=== PATIENT | male | born 1990 | race African-American/Black ===

== ENCOUNTER 2024-02-07 02:23 | Emergency (ER) | payer OTHER ==
[~2024-02-07] VITALS: Ht 175.3 cm; Wt 90.0 kg
[2024-02-07 02:29] VITALS: O2SAT 98
[2024-02-07] MEDS ORDERED: BENZ1LOZ73 MT (04:07)
[2024-02-07] MEDS ORDERED: NAPR-681 MT (04:07)
[2024-02-07] MEDS: ACETAMINOPHEN 325MG TABLET PO ONE (04:42)
[2024-02-07 04:46] VITALS: BP 149/97; PULSE 90; RESP 18; TEMP 37.00296; O2SAT 98
[2024-02-08] MEDS ORDERED: FLUT9.9S BOTHNSTRLS (05:44)
[2024-02-08] MEDS ORDERED: TOPUD PO (05:44)
== END 2024-02-07 09:40 | disposition home or self-care (01) ==
LOC: ER 02:23
DX: J02.9 Acute pharyngitis, unspecified (principal); I10 Essential (primary) hypertension
CPT/HCPCS: 87070; 87430; 99283

== ENCOUNTER 2024-02-08 01:14 | Emergency (ER) | payer OTHER ==
[~2024-02-08] VITALS: Ht 177.8 cm; Wt 100.0 kg
[~2024-02-08 01:14] MED LIST: BENZ1LOZ73 MT; NAPR-681 MT
[2024-02-08 01:17] VITALS: BP 127/79; RESP 16; TEMP 98.6; O2SAT 100
[2024-02-08 04:15] VITALS: PULSE 86; O2SAT 90
[2024-02-08] MEDS ORDERED: FLUT9.9S BOTHNSTRLS (05:44)
[2024-02-08] MEDS ORDERED: TOPUD PO (05:44)
[2024-02-08] MEDS: ACETAMINOPHEN 325MG TABLET PO ONE (06:05)
== END 2024-02-08 06:16 | disposition home or self-care (01) ==
LOC: ER 01:14
DX: B34.9 Viral infection, unspecified (principal); I10 Essential (primary) hypertension; Z79.899 Other long term (current) drug therapy
CPT/HCPCS: 71045; 99283

== ENCOUNTER 2024-07-06 19:38 | Emergency (ER) | payer MEDICAID ==
[~2024-07-06] VITALS: Ht 177.8 cm; Wt 104.0 kg
[~2024-07-06 19:38] MED LIST changes: +FLUT9.9S BOTHNSTRLS; +TOPUD PO
[2024-07-06 19:40] VITALS: O2SAT 100
[2024-07-06 21:32] LABS: HEMOGLOBIN. 14.1 g/dL (14.0-18.0)
[2024-07-06 21:34] LABS: BASOPHILS % 0.5 % (0.0-2.0); EOSINOPHILS % 1.1 % (0.0-5.0); HEMATOCRIT. 43.7 % (42.0-52.0); LYMPHOCYTES % 38.3 % (20.0-50.0); MEAN CORPUSCULAR HEMOGLOBIN 28.9 pg (28.0-32.0); MEAN CORPUSCULAR HGB CONC 32.3 g/dL (31.0-37.0); MEAN CORPUSCULAR VOLUME 89.5 fL (80.0-94.0); MEAN PLATELET VOLUME 9.6 fl (7.4-10.4); NEUTROPHILS % 55.1 % (40.0-76.0); PLATELET 202 x1000/uL (130-400); RED BLOOD CELL COUNT 4.88 mill/uL (4.7-6.1); RED CELL DISTRIBUTION WIDTH 13.8 % (11.6-14.6); WHITE BLOOD COUNT 6.8 x1000/uL (4.5-11.0)
[2024-07-06 21:39] LABS: CHLORIDE 104 mEq/L (98-107); POTASSIUM 3.7 mEq/L (3.5-5.1); SODIUM 142 mEq/L (136-145)
[2024-07-06 21:40] LABS: CALCIUM 9.7 mg/dL (8.7-10.4); CARBON DIOXIDE 29 mEq/L (21-32)
[2024-07-06 21:45] LABS: CREATININE 0.9 mg/dL (0.6-1.3); GLUCOSE 105 mg/dL (70-105); UREA NITROGEN BLOOD 12 mg/dL (9-23)
[2024-07-07 00:33] LABS: CLARITY URINE CLOUDY (CLEAR); COLOR URINE YELLOW (YELLOW); GLUCOSE URINE NEGATIVE (NEGATIVE); KETONES URINE NEGATIVE (NEGATIVE); LEUKOCYTE ESTERASE URINE NEGATIVE (NEGATIVE); NITRITE URINE NEGATIVE (NEGATIVE); OCCULT BLOOD URINE NEGATIVE (NEGATIVE); PH URINE 7.5 (4.5-8.0); PROTEIN URINE NEGATIVE (NEGATIVE); SPECIFIC GRAVITY URINE 1.024 (1.005-1.030); UROBILINOGEN URINE 0.2 E.U./dL (0.2-1.0)
[2024-07-07 01:11] LABS: BACTERIA URINE NONE SEEN; RBC URINE NONE SEEN /hpf (0-2); SQUAMOUS EPITHELIAL CELL URINE NONE SEEN /lpf (RARE/1+); WBC URINE 0-2 /hpf (0-2)
[2024-07-07 02:33] LABS: ALANINE AMINOTRANSFERASE 37 IU/L (10-49); ALBUMIN 4.5 g/dL (3.2-4.8); ASPARTATE AMINOTRANSFERASE 21 IU/L (<34); BILIRUBIN DIRECT 0.2 mg/dL (<=3.0); BILIRUBIN TOTAL 0.6 mg/dL (0.1-1.0); PROTEIN TOTAL 7.4 g/dL (6.0-8.3)
[2024-07-07 02:54] LABS: TROPONIN I HIGH SENSITIVITY < 4 ng/L (3.0-53)
[2024-07-07] MEDS: METOCLOPRAMIDE HCL 5MG TABLET PO ONE (03:45)
[2024-07-07] MEDS: KETOROLAC 15MG/ML VIAL IM ONE (03:45)
[2024-07-07] MEDS ORDERED: NAPR-1176 MT (03:53)
[2024-07-07] MEDS: ACETAMINOPHEN 325MG TABLET PO NR (09:55)
[2024-07-07 10:50] VITALS: BP 126/71; PULSE 67; RESP 16; TEMP 37.6; O2SAT 99
== END 2024-07-07 10:58 | disposition home or self-care (01) ==
LOC: ER 19:38
DX: R51.9 Headache, unspecified (principal); I10 Essential (primary) hypertension; F84.0 Autistic disorder; Z79.1 Long term (current) use of non-steroidal anti-inflammatories (NSAID); Z79.899 Other long term (current) drug therapy
CPT/HCPCS: 80048; 81003; 85025; 36415 ×2; 99283; 80076; 84484; 96372; J8597; J1885; Z7610 ×2; A4606

== ENCOUNTER 2024-07-15 17:29 | Emergency (ER) | payer OTHER ==
[~2024-07-15] VITALS: Ht 177.8 cm; Wt 95.0 kg
[~2024-07-15 17:29] MED LIST changes: +NAPR-1176 MT
[2024-07-15 17:42] VITALS: BP 140/93; PULSE 95; RESP 16; TEMP 36.7; O2SAT 97
[2024-07-15 18:53] LABS: BASOPHILS % 0.5 % (0.0-2.0); HEMOGLOBIN. 13.4 g/dL (14.0-18.0); LYMPHOCYTES % 31.1 % (20.0-50.0); MEAN CORPUSCULAR HEMOGLOBIN 27.9 pg (28.0-32.0); MEAN CORPUSCULAR VOLUME 87.3 fL (80.0-94.0); MEAN PLATELET VOLUME 9.6 fl (7.4-10.4); MONOCYTES % 5.5 % (2.0-8.0); NEUTROPHILS % 61.9 % (40.0-76.0); PLATELET 221 x1000/uL (130-400); RED BLOOD CELL COUNT 4.82 mill/uL (4.7-6.1); RED CELL DISTRIBUTION WIDTH 13.8 % (11.6-14.6); WHITE BLOOD COUNT 7.9 x1000/uL (4.5-11.0)
[2024-07-15 18:58] LABS: CHLORIDE 107 mEq/L (98-107); POTASSIUM 3.9 mEq/L (3.5-5.1); SODIUM 145 mEq/L (136-145)
[2024-07-15 18:59] LABS: CARBON DIOXIDE 30 mEq/L (21-32)
[2024-07-15 19:04] LABS: CREATININE 0.7 mg/dL (0.6-1.3); GLUCOSE 98 mg/dL (70-105)
[2024-07-15 19:05] LABS: UREA NITROGEN BLOOD 12 mg/dL (9-23)
[2024-07-15 19:44] VITALS: TEMP 98
[2024-07-15] MEDS: ACETAMINOPHEN 325MG TABLET PO ONE (19:44)
[2024-07-15] MEDS: ACETAMINOPHEN 325MG TABLET PO NR (21:45)
[2024-07-15] MEDS ORDERED: ACETAMINOPHEN 325MG TABLET PO ONE (21:45)
== END 2024-07-16 00:11 | disposition home or self-care (01) ==
LOC: ER 17:29
DX: R51.9 Headache, unspecified (principal); I10 Essential (primary) hypertension; F84.0 Autistic disorder; Z79.1 Long term (current) use of non-steroidal anti-inflammatories (NSAID); Z79.899 Other long term (current) drug therapy
CPT/HCPCS: 36415; 80048; 85025; 99283

== ENCOUNTER 2024-07-25 05:35 | Emergency (ER) | payer MEDICAID, OTHER ==
[~2024-07-25] VITALS: Ht 177.8 cm; Wt 105.0 kg
[2024-07-25 05:42] VITALS: TEMP 36.8; O2SAT 99
[2024-07-25] MEDS ORDERED: FLUTICASONE PROPIONATE 50MCG/SPRAY BOTTLE BOTHNSTRLS STA (06:05)
[2024-07-25] MEDS ORDERED: CLAR10 PO (06:48)
[2024-07-25 07:00] VITALS: BP 133/89; PULSE 102; RESP 18; O2SAT 96
== END 2024-07-25 07:34 | disposition home or self-care (01) ==
LOC: ER 05:35
DX: R09.81 Nasal congestion (principal); B34.9 Viral infection, unspecified; I10 Essential (primary) hypertension; Z79.1 Long term (current) use of non-steroidal anti-inflammatories (NSAID)
CPT/HCPCS: 71045; 99283

== ENCOUNTER 2024-07-27 09:12 | Emergency (ER) | payer MEDICAID ==
[~2024-07-27] VITALS: Ht 177.8 cm; Wt 91.0 kg
[~2024-07-27 09:12] MED LIST changes: +CLAR10 PO
[2024-07-27 09:16] VITALS: BP 136/93; PULSE 102; RESP 16; TEMP 36.5; O2SAT 98
== END 2024-07-27 10:56 | disposition home or self-care (01) ==
LOC: ER 09:12
DX: R45.851 Suicidal ideations (principal); I10 Essential (primary) hypertension; Z79.1 Long term (current) use of non-steroidal anti-inflammatories (NSAID); Z79.899 Other long term (current) drug therapy
CPT/HCPCS: 99283

== ENCOUNTER 2024-08-21 15:07 | Emergency (ER) | payer MEDICAID ==
[~2024-08-21] VITALS: Ht 175.3 cm; Wt 91.0 kg
[2024-08-21 15:13] VITALS: O2SAT 97
[2024-08-21] MEDS ORDERED: METOCLOPRAMIDE HCL 10MG/2ML VIAL IV ONE (18:30)
[2024-08-21] MEDS: MECLIZINE 25MG TABLET PO ONE (18:39)
[2024-08-21] MEDS: SODIUM CHLORIDE 0.9% 1,000 ML IV ONE (18:40)
[2024-08-21] MEDS: DIPHENHYDRAMINE 50MG/ML VIAL IV ONE (18:40)
[2024-08-21] MEDS: ACETAMINOPHEN 325MG TABLET PO ONE (18:40)
[2024-08-21 19:05] LABS: BASOPHILS % 0.4 % (0.0-2.0); EOSINOPHILS % 0.3 % (0.0-5.0); HEMATOCRIT. 40.5 % (42.0-52.0); HEMOGLOBIN. 13.4 g/dL (14.0-18.0); LYMPHOCYTES % 23.9 % (20.0-50.0); MEAN CORPUSCULAR HEMOGLOBIN 28.9 pg (28.0-32.0); MEAN CORPUSCULAR HGB CONC 33.1 g/dL (31.0-37.0); MEAN CORPUSCULAR VOLUME 87.3 fL (80.0-94.0); MEAN PLATELET VOLUME 9.9 fl (7.4-10.4); MONOCYTES % 5.2 % (2.0-8.0); NEUTROPHILS % 70.2 % (40.0-76.0); PLATELET 207 x1000/uL (130-400); RED BLOOD CELL COUNT 4.64 mill/uL (4.7-6.1); RED CELL DISTRIBUTION WIDTH 14.2 % (11.6-14.6); WHITE BLOOD COUNT 8.9 x1000/uL (4.5-11.0)
[2024-08-21 19:17] LABS: CHLORIDE 105 mEq/L (98-107); POTASSIUM 4.1 mEq/L (3.5-5.1); SODIUM 144 mEq/L (136-145)
[2024-08-21 19:18] LABS: CALCIUM 9.3 mg/dL (8.7-10.4); CARBON DIOXIDE 29 mEq/L (21-32)
[2024-08-21 19:23] LABS: CREATININE 0.8 mg/dL (0.6-1.3); ETHANOL BLOOD < 10 mg/dL (<10); GLUCOSE 109 mg/dL (70-105); UREA NITROGEN BLOOD 16 mg/dL (9-23)
[2024-08-21 19:24] LABS: PROTHROMBIN TIME 10.3 sec (9.6-11.0)
[2024-08-21 19:29] LABS: CLARITY URINE CLEAR (CLEAR); COLOR URINE YELLOW (YELLOW); GLUCOSE URINE NEGATIVE (NEGATIVE); KETONES URINE NEGATIVE (NEGATIVE); LEUKOCYTE ESTERASE URINE NEGATIVE (NEGATIVE); NITRITE URINE NEGATIVE (NEGATIVE); OCCULT BLOOD URINE NEGATIVE (NEGATIVE); PH URINE 7.5 (4.5-8.0); PROTEIN URINE NEGATIVE (NEGATIVE); SPECIFIC GRAVITY URINE 1.022 (1.005-1.030); UROBILINOGEN URINE 0.2 E.U./dL (0.2-1.0)
[2024-08-21 19:51] LABS: *AMPHETAMINES SCREEN URINE NEGATIVE (NEGATIVE)
[2024-08-21 19:52] LABS: *BARBITURATES SCREEN URINE NEGATIVE (NEGATIVE); *BENZODIAZEPINES SCREEN URINE NEGATIVE (NEGATIVE); *COCAINE SCREEN URINE NEGATIVE (NEGATIVE); CANNABINOID URINE SCREEN NEGATIVE (NEGATIVE); ECSTASY MDMA SCREEN URINE NEGATIVE (NEGATIVE); METHADONE URINE SCREEN NEGATIVE (NEGATIVE); OPIATES URINE SCREEN NEGATIVE (NEGATIVE); PHENCYCLIDINE URINE SCREEN NEGATIVE (NEGATIVE)
[2024-08-21] MEDS ORDERED: MECL-299 MT (21:22)
[2024-08-22 01:15] VITALS: BP 132/86; PULSE 66; RESP 16; TEMP 36.7; O2SAT 99
== END 2024-08-22 01:17 | disposition home or self-care (01) ==
LOC: ER 15:07
DX: R42 Dizziness and giddiness (principal); I10 Essential (primary) hypertension; F84.0 Autistic disorder; Z98.890 Other specified postprocedural states; Z79.899 Other long term (current) drug therapy
CPT/HCPCS: 80305; 80048; 81003; 80320; 85025; 85610; 36415; 70450; 93005; 96361; 96374; 99285; J8597; J1200; J7030; Z7610 ×2; G0480

== ENCOUNTER 2024-11-26 06:46 | Inpatient (IN) | payer MEDICAID ==
[~2024-11-26] VITALS: Ht 165.1 cm; Wt 113.1 kg
[~2024-11-26 06:46] MED LIST changes: +MECL-299 MT
[2024-11-26 06:50] VITALS: O2SAT 100
[2024-11-26] MEDS: ACETAMINOPHEN 1000MG/100ML 100 ML IV ONE (07:50)
[2024-11-26] MEDS: SODIUM CHLORIDE 0.9% 1,000 ML IV ONE (07:50)
[2024-11-26] MEDS: METOCLOPRAMIDE HCL 10MG/2ML VIAL IV ONE (07:50)
[2024-11-26 07:59] LABS: BASOPHILS % 0.6 % (0.0-2.0); EOSINOPHILS % 0.9 % (0.0-5.0); HEMATOCRIT. 38.1 % (42.0-52.0); HEMOGLOBIN. 12.6 g/dL (14.0-18.0); LYMPHOCYTES % 49.9 % (20.0-50.0); MEAN PLATELET VOLUME 8.7 fl (7.4-10.4); MONOCYTES % 9.6 % (2.0-8.0); NEUTROPHILS % 39.0 % (40.0-76.0); PLATELET 192 x1000/uL (130-400); RED BLOOD CELL COUNT 4.40 mill/uL (4.7-6.1); RED CELL DISTRIBUTION WIDTH 13.5 % (11.6-14.6)
[2024-11-26 08:12] LABS: CREATININE 0.8 mg/dL (0.6-1.3); UREA NITROGEN BLOOD 18 mg/dL (9-23)
[2024-11-26 08:13] LABS: TROPONIN I HIGH SENSITIVITY 6 ng/L (3.0-53)
[2024-11-26] MEDS ORDERED: DOCUSATE SODIUM 100MG CAPSULE PO PRN (09:30)
[2024-11-26] MEDS ORDERED: IPRATROPIUM/ALBUTEROL 0.5-3(2.5)MG/3ML NEB HHN PRN (09:30)
[2024-11-26] MEDS ORDERED: GUAIFENESIN 200MG/10ML SUGAR FREE UDC PO PRN (09:30)
[2024-11-26] MEDS ORDERED: ONDANSETRON HCL 4MG/2ML INJ IV PRN (09:30)
[2024-11-26] MEDS ORDERED: ACETAMINOPHEN 325MG TABLET PO PRN (09:30)
[2024-11-26] MEDS ORDERED: CLONIDINE 0.1MG TABLET PO PRN (09:30)
[2024-11-26] MEDS ORDERED: MAGNESIUM/ALUMINUM HYDROXIDE/SIMETHICONE 30ML UDC PO PRN (09:30)
[2024-11-26] MEDS ORDERED: MECLIZINE 25MG TABLET PO PRN (09:30)
[2024-11-26 09:46] LABS: FOLIC ACID (FOLATE) SERUM > 20.00 ng/mL (>5.38)
[2024-11-26 09:47] LABS: VITAMIN B12 SERUM 567 pg/mL (211-911)
[2024-11-26 10:00] LABS: CLARITY URINE CLEAR (CLEAR); COLOR URINE YELLOW (YELLOW); GLUCOSE URINE NEGATIVE (NEGATIVE); KETONES URINE NEGATIVE (NEGATIVE); LEUKOCYTE ESTERASE URINE NEGATIVE (NEGATIVE); NITRITE URINE NEGATIVE (NEGATIVE); OCCULT BLOOD URINE NEGATIVE (NEGATIVE); PH URINE 7.0 (4.5-8.0); PROTEIN URINE NEGATIVE (NEGATIVE); SPECIFIC GRAVITY URINE 1.021 (1.005-1.030); UROBILINOGEN URINE 0.2 E.U./dL (0.2-1.0)
[2024-11-26] MEDS: ACETAMINOPHEN 325MG TABLET PO PRN (10:36)
[2024-11-26] MEDS: ENOXAPARIN 40MG/0.4ML SYR SUBCUT SCH (10:36)
[2024-11-26 10:37] LABS: *AMPHETAMINES SCREEN URINE NEGATIVE (NEGATIVE); *BARBITURATES SCREEN URINE NEGATIVE (NEGATIVE); *BENZODIAZEPINES SCREEN URINE NEGATIVE (NEGATIVE); *COCAINE SCREEN URINE NEGATIVE (NEGATIVE); CANNABINOID URINE SCREEN NEGATIVE (NEGATIVE); ECSTASY MDMA SCREEN URINE NEGATIVE (NEGATIVE); METHADONE URINE SCREEN NEGATIVE (NEGATIVE); OPIATES URINE SCREEN NEGATIVE (NEGATIVE); PHENCYCLIDINE URINE SCREEN NEGATIVE (NEGATIVE)
[2024-11-26 12:00] VITALS: BP 126/95; PULSE 73; RESP 18; TEMP 36.6; O2SAT 98
[2024-11-26 16:00] VITALS: BP 120/81; PULSE 70; RESP 20; TEMP 36.7; O2SAT 99
[2024-11-26 16:30] VITALS: BP 126/76; PULSE 73; RESP 20; TEMP 36.4736
[2024-11-26 17:20] LABS: TROPONIN I HIGH SENSITIVITY 13 ng/L (3.0-53)
[2024-11-26 20:00] VITALS: BP_SYST 105; BP_SYST 134; BP_SYST 137; BP_SYST 139; BP_DIAS 61; BP_DIAS 88; BP_DIAS 89; BP_DIAS 92; PULSE 72; PULSE 78; RESP 18; RESP 19; TEMP 36.6; TEMP 36.7; O2SAT 96; O2SAT 98
[2024-11-26] MEDS: FAMOTIDINE 20MG TABLET PO SCH (20:35)
[2024-11-27] VITALS: BP 119/64; PULSE 69; RESP 17; TEMP 35.8; O2SAT 96
[2024-11-27 01:45] LABS: TROPONIN I HIGH SENSITIVITY 5 ng/L (3.0-53)
[2024-11-27 04:00] VITALS: BP 125/88; PULSE 70; RESP 18; TEMP 36.3; O2SAT 98
[2024-11-27 06:16] LABS: BASOPHILS % 0.6 % (0.0-2.0); EOSINOPHILS % 2.1 % (0.0-5.0); HEMATOCRIT. 39.9 % (42.0-52.0); HEMOGLOBIN. 12.9 g/dL (14.0-18.0); LYMPHOCYTES % 59.1 % (20.0-50.0); MEAN PLATELET VOLUME 8.6 fl (7.4-10.4); MONOCYTES % 8.7 % (2.0-8.0); NEUTROPHILS % 29.5 % (40.0-76.0); PLATELET 180 x1000/uL (130-400); RED BLOOD CELL COUNT 4.64 mill/uL (4.7-6.1); RED CELL DISTRIBUTION WIDTH 13.9 % (11.6-14.6)
[2024-11-27 06:22] LABS: CREATININE 0.8 mg/dL (0.6-1.3)
[2024-11-27 06:25] LABS: T4 FREE 1.31 ng/dL (0.89-1.76); UREA NITROGEN BLOOD 15 mg/dL (9-23)
[2024-11-27] MEDS: MULTIVITAMINS,THER W-MINERALS TABLET PO SCH (09:45)
[2024-11-27] MEDS: FERROUS SULFATE 325MG TABLET PO SCH (09:46)
[2024-11-27 12:00] VITALS: BP 138/97; PULSE 66; RESP 18; TEMP 36.4; O2SAT 96
[2024-11-27] MEDS ORDERED: MECL-299 MT (12:23)
[2024-11-27 16:00] VITALS: BP 133/77; PULSE 79; RESP 18; TEMP 36.2; O2SAT 97
[2024-11-27 16:36] VITALS: BP 138/97; PULSE 66; RESP 18; TEMP 97.5
== END 2024-11-27 17:10 | disposition home or self-care (01) | DRG 207 ==
LOC: ER 06:46 → 7WST 08:39 → EDBEDREQTM 08:42 → EDBEDREQ 08:42 → ENRESERV 09:01
PROVIDERS: ADMIT Hospitalist; ATTEND Hospitalist
DX: I95.2 Hypotension due to drugs (principal); E87.0 Hyperosmolality and hypernatremia; D64.9 Anemia, unspecified; E66.9 Obesity, unspecified; I10 Essential (primary) hypertension; F84.0 Autistic disorder; T50.995A Adverse effect of other drugs, medicaments and biological substances, initial encounter; Y92.89 Other specified places as the place of occurrence of the external cause; Z68.41 Body mass index [BMI] 40.0-44.9, adult
CPT/HCPCS: 36415; 71045; 80048; 80305; 81003; 82550; 82607; 82728; 82746; 83540; 83550; 84439; 84443; 84484; 85025; 85044; 93005; 99285; J1650; J2765; J7030; J0131

== ENCOUNTER 2024-12-04 12:08 | Emergency (ER) | payer MEDICAID ==
[~2024-12-04] VITALS: Ht 172.7 cm; Wt 82.0 kg
[~2024-12-04 12:08] MED LIST changes: -BENZ1LOZ73 MT; -NAPR-1176 MT; -NAPR-681 MT; -TOPUD PO
[2024-12-04 12:11] VITALS: O2SAT 97
[2024-12-04] MEDS ORDERED: DEXAMETHASONE 1 MG/ML ORAL SYR PO ONE (14:15)
[2024-12-04] MEDS: DEXAMETHASONE 4MG TABLET PO SCH (14:35)
[2024-12-04] MEDS: ACETAMINOPHEN 325MG TABLET PO ONE (14:35)
[2024-12-04] MEDS: VISCOUS LIDOCAINE 2% 15 ML UDC MM ONE (16:38)
[2024-12-04] MEDS ORDERED: IBUP-2028 MT (17:19)
[2024-12-04 20:01] VITALS: BP 125/83; PULSE 80; RESP 15; TEMP 36.7; O2SAT 95
[2024-12-05] MEDS ORDERED: IBUP-2029 MT (05:14)
[2024-12-05] MEDS ORDERED: METH4TAB95 MT (21:53)
== END 2024-12-04 21:01 | disposition home or self-care (01) ==
LOC: ER 12:08
DX: J02.8 Acute pharyngitis due to other specified organisms (principal); B97.89 Other viral agents as the cause of diseases classified elsewhere; F84.0 Autistic disorder; I10 Essential (primary) hypertension; Z79.899 Other long term (current) drug therapy
CPT/HCPCS: 99284; 87430; 87070; 87077; J8540; 99283

== ENCOUNTER 2024-12-05 02:29 | Emergency (ER) | payer MEDICAID ==
[~2024-12-05] VITALS: Ht 175.3 cm; Wt 103.0 kg
[~2024-12-05 02:29] MED LIST changes: +IBUP-2028 MT
[2024-12-05 02:31] VITALS: O2SAT 96
[2024-12-05] MEDS: DEXAMETHASONE 10 MG/ML VIAL IM NR (02:54)
[2024-12-05] MEDS: KETOROLAC 30MG/ML VIAL IM NR (02:54)
[2024-12-05] MEDS ORDERED: IBUP-2029 MT (05:14)
[2024-12-05 05:55] VITALS: BP 134/83; PULSE 83; RESP 18; TEMP 36.6; O2SAT 97
[2024-12-05] MEDS: ACETAMINOPHEN 325MG TABLET PO NR (05:56)
[2024-12-05] MEDS ORDERED: METH4TAB95 MT (21:53)
== END 2024-12-05 05:59 | disposition home or self-care (01) ==
LOC: ER 02:29
DX: J02.9 Acute pharyngitis, unspecified (principal); I10 Essential (primary) hypertension; F84.0 Autistic disorder; Z20.822 Contact with and (suspected) exposure to COVID-19; Z79.52 Long term (current) use of systemic steroids; Z79.899 Other long term (current) drug therapy
CPT/HCPCS: 87430; 87070; 96372; 99284; 87426; J1100; J1885; Z7610

== ENCOUNTER 2024-12-05 21:18 | Emergency (ER) | payer MEDICAID ==
[~2024-12-05] VITALS: Ht 177.8 cm; Wt 100.0 kg
[~2024-12-05 21:18] MED LIST changes: +IBUP-2029 MT
[2024-12-05 21:20] VITALS: O2SAT 99
[2024-12-05] MEDS ORDERED: METH4TAB95 MT (21:53)
[2024-12-05 22:41] VITALS: BP 113/71; PULSE 74; RESP 18; TEMP 36.8; O2SAT 99
== END 2024-12-05 22:51 | disposition home or self-care (01) ==
LOC: ER 21:18
DX: J00 Acute nasopharyngitis [common cold] (principal); I10 Essential (primary) hypertension; Z79.899 Other long term (current) drug therapy
CPT/HCPCS: 99283